=== PATIENT | female | born 1990 | race Two or more races ===

== ENCOUNTER 2024-12-01 13:35 | Outpatient (CLI) | payer BC, SELFPAY ==
[2024-12-01] VITALS (35 sets, daily range): BP systolic 120–137; BP diastolic 74–87; PULSE 87–116; RESP 15–18; TEMP 36.5; O2SAT 92–100; BMI 31.0
[2024-12-01] MEDS: Lactated Ringers 1,000 ML 125 ML IV (14:00)
[2024-12-01 14:13] LABS: Hematocrit 35.4 % (37-47); Hemoglobin 12.3 g/dL (12.0-15.0); Mean Corp Hgb Conc 34.7 g/dL (32-36); Mean Corpuscular Hgb 32.5 pg (27.0-32.0); Mean Corpuscular Volume 93.7 fL (81-99); Mean Platelet Vol. 10.9 fl (6.2-12.0); Platelet Count 171 K/mm3 (150-450); RBC Distribution Width CV 12.2 % (11.6-14.6); RBC Distribution Width SD 41.8 fl (35.1-43.9); Red Blood Count 3.78 M/mm3 (4.2-5.4); White Blood Count 8.3 K/mm3 (4.4-11.0)
[2024-12-01 14:45] LABS: Fibrinogen 556 mg/dl (203-444)
--- NOTE | 2024-12-01 15:31 | HP.PCM.OB_ITS ---
HPI - General General Date of Admission: 12/01/24 Date of Service: 12/01/24 Chief Complaint: Heavy vaginal bleeding at 27+ weeks gestation HPI Narrative LAURA NUNEZ, is a 34 F G3, P2 with a EDC 02/25/2025 who presents at 27+ weeks gestation with vaginal bleeding. She reports that last Friday she had a gush of blood which left approximately a 5 x 5 cm area of blood on a pad. She presented to labor and delivery at [place] and was eventually sent home after a speculum exam. Patient has a known marginal placenta previa with the placental 1.5 cm from the cervical os about 3 weeks ago. Today she went back to work for the first time after her bleeding last week and noted a sudden onset of heavy vaginal bleeding. She presented to [facility] labor and delivery for evaluation. Patient reports good movement. Maternal Data Information Final [facility]ACE: 02/25/25 Final [facility] Source: [place] <20 weeks Gestational age: 27+ weeks PFSH PFSH Home Medications ?Medication ?Instructions ?Recorded ?Last Taken ?Type vitamins-iron fumarate 65 1 tab PO DAILY preg qiana 12/01/24 11/30/24 22:00 History mg iron-folic acid 1 mg tablet ([facility]) Allergy/AdvReac Type Severity Reaction Status Date / Time Sulfa (Sulfonamide Allergy hives Verified 12/01/24 13:50 Antibiotics) Social History (Updated 12/01/24 @ 15:[address] Eddie Paredes MD) number of children: 2 Smoking Status: Never smoker alcohol intake: current substance use type: does not use NST FHR Rate Baby A Variability:: Moderate Accelerations:: 10 x 10 Decelerations:: None NST Reactive:: Appropriate for gestational age Vital Signs Vital Signs Vital Signs: 12/01/24 13:50 12/01/24 13:50 12/01/24 13:50 Temperature Temperature Source Temporal Pulse Rate 88 Respiratory Rate Blood Pressure 135/81 H BP Systolic 135 BP Diastolic 81 Pulse Ox 12/01/24 13:50 12/01/24 13:50 12/01/24 13:50 Temperature 97.7 F L Temperature Source Pulse Rate Respiratory Rate 16 Blood Pressure BP Systolic BP Diastolic Pulse Ox 100 12/01/24 14:21 12/01/24 14:21 Temperature Temperature Source Pulse Rate 101 H Respiratory Rate Blood Pressure 124/81 H BP Systolic 124 BP Diastolic 81 Pulse Ox Weight Weight: 167 lb Body Mass Index (BMI) 31.0 Physical Exam Narrative Afebrile, vital signs stable. Bedside ultrasound shows marginal anterior placenta previa with placental edge approximately 2.5 cm from a closed internal cervical os. Baby is in transverse presentation with feet near the internal cervical os. Good fluid noted. Const alert, oriented x3 and no apparent distress General Appearance: cooperative and comfortable Exam Limitations: no limitations HEENT normocephalic Neck full ROM Resp normal respiratory effort and no retractions Cardio regular rate GI non-tender and non-distended Narrative: Cervix noted to be closed and approximately 3 cm long on ultrasound. Confirmatory pelvic exam attempted but cervix not palpable as cervix was too high to reach. Blood was noted in the vagina. Extremity normal to inspection and full ROM Skin no rashes or lesions noted Neuro moves all extremities and no focal motor deficits Psych mental status grossly normal, affect normal, speech normal and activity/motor behavior normal Labs Labs Labs: Blood Type O POSITIVE Antibody Screen NEGATIVE Hct 35.4 % (37-47) L Hgb 12.3 g/dL (12.0-15.0) Assessment & Plan (1) Placenta previa marginalis: (2) Hemorrhage affecting in second trimester: PLAN: Bleeding minimal and diminishing. CBC shows hemoglobin approximately 12 and fibrinogen level normal. Continuing to monitor with anticipation that bleeding will stop. heart tones reassuring. Discussed placenta previa at length with the patient and her including need for monitoring baby and her bleeding for at least 1 to 2 days since this being her second bleed. We also discussed the possibly starting steroids in anticipation of delivery but we will hold off on this until bleeding subsides and we are more certain that contractions are not present or will be exacerbated. Will keep n.p.o. for now and anticipate starting regular diet when catastrophic hemorrhage risk is lower, perhaps this evening. Continuing IV access. Type and screen drawn.
[2024-12-01] MEDS: Magnesium Sulfate 4gm/100mL 4 GM/100 ML IV.SOLN. IV (17:02)
--- NOTE | 2024-12-01 17:14 | PN.OBGYN_ITS ---
Subjective Subjective Pt with an episode 200 cc of vaginal bleeding. Still no contractions. [place] a gush when baby kicked. Bleeding now minimal as before. Objective Data Objective Data Vital Signs: Vital Signs Temp Pulse Resp BP Pulse Ox 97.7 F L 102 H 16 125/82 H 100 12/01/24 13:50 12/01/24 17:12 12/01/24 13:50 12/01/24 17:05 12/01/24 17:12 Weight: 167 lb Body Mass Index (BMI) 31.0 Lab / Micro Data 12/01/24 13:40 Labs: Laboratory Results - last 24 hr 12/01/24 13:40: WBC 8.3, RBC 3.78 L, Hgb 12.3, Hct 35.4 L, MCV 93.7, MCH 32.5 H, MCHC 34.7, RDW Std Deviation 41.8, RDW Coeff of Opal 12.2, Plt Count 171, MPV 10.9, Fibrinogen 556 H, Blood Type O POSITIVE, Antibody Screen NEGATIVE Assessment & Plan (1) Hemorrhage affecting in second trimester: (2) Placenta previa marginalis: PLAN: 27w5d IUP with marginal placenta previa with mild vaginal bleeding and occasionally intermittently heavier bleeding. Discussed with UYEN Handley at [facility], who agrees to accept in transport. Will start MgSO4 and give first dose of steroids. Discussed at length with patient and her who agree with transport.
[2024-12-01] MEDS: Magnesium Sulfate 20 GM/500 ML BAG IV (17:22)
[2024-12-01] MEDS: Betamethasone/Betamethasone 30 MG/5 ML Vial 12 MG IM (17:29)
== END 2024-12-01 19:10 | disposition short-term general hospital (02) ==
LOC: WPOUT 13:48 → WP 13:48
PROVIDERS: Referring Provider Obstetrics & Gynecology; Visit Provider Obstetrics & Gynecology
DX: O44.32 Partial placenta previa with hemorrhage, second trimester (principal); Z3A.27 27 weeks gestation of pregnancy
CPT/HCPCS: 96365; 96366 ×6; 96367; 36415; 59025; 59050; 76815; 85027; 85384; 86850; 86900; 86901; 86920; 86922; 96372; 99221; G0378; J0702